=== PATIENT | male | born 1975 | race Hispanic/Latino ===

== ENCOUNTER 2024-04-21 15:44 | Emergency (ER) | payer SELFPAY ==
[~2024-04-21] VITALS: Ht 180.3 cm; Wt 120.2 kg
[2024-04-21 16:11] VITALS: PULSE 84; RESP 20; TEMP 99.3
[2024-04-21] MEDS: KETOROLAC TROMETHAMINE 60 MG/2 ML VIAL IM ONE (17:21)
[2024-04-21] MEDS: HYDROCODONE/APAP 5MG-325MG TAB PO ONE (17:21)
[2024-04-21] MEDS: DEXAMETHASONE SOD PHOS INJ 4 MG/ML SDV IM ONE (17:21)
[2024-04-21] MEDS ORDERED: PREDNISONE50 MG PO (18:14)
[2024-04-21] MEDS ORDERED: ULTRAM 50MG50 MG PO ×2 (18:15→18:17)
[2024-04-21 18:43] VITALS: BP 129/84; PULSE 74; RESP 18; TEMP 98.3; O2SAT 99
== END 2024-04-21 18:24 | disposition home or self-care (01) ==
LOC: FSED 15:47
DX: M54.16 Radiculopathy, lumbar region (principal); M62.830 Muscle spasm of back; E66.01 Morbid (severe) obesity due to excess calories; Z87.19 Personal history of other diseases of the digestive system
CPT/HCPCS: 99283; J1100; J1885